=== PATIENT | female | born 1995 | race Caucasian/White ===

== ENCOUNTER 2018-07-23 08:04 | Emergency (ER) | payer OTHER ==
--- NOTE | 2018-07-23 08:29 | RAD ---
Indication: LEFT foot and ankle pain. Rolling injury. Comparison: Ankle of the same date. Technique: AP, lateral, and oblique views LEFT foot. Report: Negative for fracture or articular malalignment. Suggestion of degenerative change at the sesamoid at the lateral head of the flexor hallucis brevis. Unremarkable soft tissue contours. IMPRESSION: #. No acute traumatic injury evident.
--- NOTE | 2018-07-23 08:31 | RAD ---
Indication: LEFT ankle and foot pain following injury last night. Comparison: LEFT foot of the same date. Technique: AP, mortise, and lateral views LEFT ankle. Report: Negative for fracture or articular malalignment. Mild soft tissue swelling most prominent over the lateral malleolus. IMPRESSION: #. Mild lateral soft tissue swelling without additional finding.
--- NOTE | 2018-07-23 08:48 | ED ---
Lower Extremity - HPI Summary HPI Summary: Patient is a 23 y/o female who presents to the ED c/o left ankle pain. 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 Patient elevated her ankle last night while sleeping, but the pain did not resolve. She notes a 2/10 aching pain currently, but the pain goes to a 10/10 when ambulating. Patient can put pressure on her ankle, but it hurts. LKMP 2 weeks ago. - History of Current Complaint Chief Complaint: EDExtremityLower Stated Complaint: LT ANKLE INJURY Time Seen by Provider: 07/23/18 08:08 Hx Obtained From: Patient Hx Last Menstrual Period: 2 weeks ago Mechanism Of Injury: Twisted Onset of Pain: Immediate Onset/Duration: Still Present - Last night Severity Currently: Mild Pain Intensity: 2 Pain Scale Used: 0-10 Numeric Timing: Constant Location: Is Discrete @ - Left ankle Character Of Pain: Aching Associated Signs And Symptoms: Positive: Swelling Aggravating Factor(s): Standing, Ambulation, Weight Bearing Alleviating Factor(s): Nothing - Allergies/Home Medications Allergies/Adverse Reactions: Allergies Allergy/AdvReac Type Severity Reaction Status Date / Time No Known Allergies Allergy Verified 07/23/18 08:10 Home Medications: Home Medications NK [No Home Medications Reported] 07/23/18 [History Confirmed 07/23/18] PMH/Surg Hx/FS Hx/Imm Hx Endocrine/Hematology History: Denies: Hx Diabetes Cardiovascular History: Denies: Hx Hypertension - Surgical History Surgery Procedure, Year, and Place: None. Infectious Disease History: No Infectious Disease History: Denies: Traveled Outside the [place] in Last 30 Days - Family History Known Family History: Negative: Diabetes - Social History Alcohol Use: Occasionally Hx Substance Use: No Substance Use Type: Reports: None Hx Tobacco Use: No Smoking Status (MU): Never Smoked Tobacco Review of Systems Negative: Fever Positive: Arthralgia - Left ankle pain All Other Systems Reviewed And Are Negative: Yes Physical Exam - Summary Physical Exam Summary: VITAL SIGNS: Reviewed. GENERAL: Patient is a well-developed and nourished FEMALE who is lying comfortable in the stretcher. Patient is not in any acute respiratory distress. HEAD AND FACE: No signs of trauma. No ecchymosis, hematomas or skull depressions. No sinus tenderness. EYES: PERRLA, EOMI x 2, No injected conjunctiva, no nystagmus. EARS: Hearing grossly intact. Ear canals and tympanic membranes are within normal limits. MOUTH: Oropharynx within normal limits. NECK: Supple, trachea is midline, no adenopathy, no JVD, no carotid bruit, no c- spine tenderness, neck with full ROM. CHEST: Symmetric, no tenderness at palpation LUNGS: Clear to auscultation bilaterally. No wheezing or crackles. CVS: Regular rate and rhythm, S1 and S2 present, no murmurs or gallops appreciated. Good pulses and capillary refill. ABDOMEN: Soft, non-tender. No signs of distention. No rebound no guarding, and no masses palpated. Bowel sounds are normal. EXTREMITIES: Mild edema of left foot around the left lateral malleolus. Full ROM. Able to bear weight. NEURO: Alert and oriented x 3. No acute neurological deficits. Speech is normal and follows commands. SKIN: Dry and warm Triage Information Reviewed: Yes Vital Signs On Initial Exam: Initial Vitals Temp Pulse Resp BP Pulse Ox 97.7 F 90 16 130/73 99 07/23/18 08:05 07/23/18 08:05 07/23/18 08:05 07/23/18 08:05 07/23/18 08:05 Vital Signs Reviewed: Yes Diagnostics - Vital Signs Vital Signs Temp Pulse Resp BP Pulse Ox 07/23/18 08:05 97.7 F 90 16 130/73 99 - Laboratory Lab Statement: Any lab studies that have been ordered have been reviewed, and results considered in the medical decision making process. - Radiology Foot XR Xray Interpretation: No Acute Changes - No acute traumatic injury evident. ED physician reviewed radiology report. Radiology Interpretation Completed By: Radiologist Ankle XR Xray Interpretation: Positive (See Comments) - Mild lateral soft tissue swelling without additional finding. ED physician reviewed radiology report. Radiology Interpretation Completed By: Radiologist Re-Evaluation - Re-Evaluation First Eval Re-Evaluation Time: 09:38 Change: Unchanged Comment: Informed patient of results and discharge instructions. Lower Extremity Course/Dx - Course Assessment/Plan: Patient is a 23 y/o female who presents to the ED c/o left ankle pain. 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 Patient elevated her ankle last night while sleeping, but the pain did not resolve. She notes a 2/10 aching pain currently, but the pain goes to a 10/10 when ambulating. Patient can put pressure on her ankle, but it hurts. LKMP 2 weeks ago. X-ray of the foot impression: No acute traumatic injury evident. X-ray of the ankle impression: Mild lateral soft tissue swelling without additional findings. Since the patient does have any fracture dislocation and believe that the patient has a tendon injury. The patient was placed in a gel cast, she was asked to take ibuprofen abdominal for the pain and follow-up with primary care physician. If the pain increases or does not improve with ice, elevation, and pain medication she should return to the emergency room for further workup and management. The patient understands and agrees. - Diagnoses Differential Diagnosis/HQI/PQRI: Positive: Bursitis, Cellulitis, Sprain, Strain , Tendonitis Provider Diagnoses: Ankle sprain Discharge - Sign-Out/Discharge Documenting (check all that apply): Patient Departure - Discharge - Discharge Plan Condition: Stable Disposition: HOME Patient Education Materials: Ankle Sprain (ED) Referrals: [facility] [place] [facility] [Outside] - 3 Days Additional Instructions: RETURN TO THE ED FOR ANY WORSENING OR NEW SYMPTOMS. - Billing Disposition and Condition Condition: STABLE Disposition: Home - Attestation Statements Document Initiated by Manpreetibe: Yes Documenting Scribe: Nicole Gupta Provider For Whom Mustapha is Documenting (Include Credential): Mario Hooker MD Scribe Attestation: Nicole Storm scribed for Mario Hooker MD on 07/25/18 at 0859. Scribe Documentation Reviewed: Yes Provider Attestation: The documentation as recorded by the Nicole cho accurately reflects the service I personally performed and the decisions made by me, Mario Hooker MD
[2018-07-23 10:07] VITALS: BP 115/74
== END 2018-07-23 10:06 | disposition home or self-care (01) ==
LOC: ED 08:04
DX: S93.402A Sprain of unspecified ligament of left ankle, initial encounter (principal); M25.572 Pain in left ankle and joints of left foot; X50.0XXA Overexertion from strenuous movement or load, initial encounter; X50.9XXA Other and unspecified overexertion or strenuous movements or postures, initial encounter; Y92.9 Unspecified place or not applicable
CPT/HCPCS: 99282

== ENCOUNTER 2019-01-05 16:13 | Emergency (ER) | payer OTHER ==
[2019-01-05] MEDS ORDERED: Ondansetron ODT TAB* 4 MG PO ONE (17:14)
[2019-01-05] MEDS ORDERED: Famotidine TAB* 20 MG PO ONE (17:14)
[2019-01-05] MEDS ORDERED: NS 0.9% 1000 ML** 1,000 ML IV ONE (17:17)
[2019-01-05] MEDS ORDERED: Ondansetron INJ* 2 MG/ML VIAL IV ONE (17:17)
--- NOTE | 2019-01-05 17:25 | ED ---
Substance Abuse/Use - HPI Summary HPI Summary: Patient is a 23 y/o female who presents to the ED c/o N/V. She was brought here by her friends with concern for dehydration. Patient began drinking shots of clear liquor at 9:00 this morning. Friends state that patient began sleeping and vomiting around 14:30 today. She was not able to keep any fluids down. Patient denies any head injury or pain. She now c/o nausea. LNMP 1 day ago. 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 Hx Last Menstrual Period: 2 weeks ago ?: No Ingestion History: Type/Name Of Drug - alcohol, Approximate Time Of Ingestion - since 9:00 this morning Overdose Characteristics: Oral Aggravating Factor(s): Nothing Alleviating Factor(s): Nothing Associated Signs And Symptoms: Nausea, Vomiting, Other: - sleepy - Allergies/Home Medications Allergies/Adverse Reactions: Allergies Allergy/AdvReac Type Severity Reaction Status Date / Time No Known Allergies Allergy Verified 01/05/19 16:20 PMH/Surg Hx/FS Hx/Imm Hx Endocrine/Hematology History: Denies: Hx Diabetes Cardiovascular History: Denies: Hx Hypertension - Surgical History Surgery Procedure, Year, and Place: None. Infectious Disease History: No Infectious Disease History: Denies: Traveled Outside the [place] in Last 30 Days - Family History Known Family History: Negative: Diabetes - Social History Alcohol Use: Occasionally Hx Substance Use: No Substance Use Type: Reports: None Hx Tobacco Use: No Smoking Status (MU): Never Smoked Tobacco Review of Systems Positive: Fatigue - "sleeping", Other - dehydrated Positive: Vomiting, Nausea Negative: Other - head injury All Other Systems Reviewed And Are Negative: Yes Physical Exam - Summary Physical Exam Summary: Appearance: Well appearing, no pain distress Skin: warm, dry, reflects adequate perfusion Head/face: normal Eyes: EOMI, EFRAIN ENT: mucous membranes moist Neck: supple, non-tender Respiratory: CTA, breath sounds present Cardiovascular: RRR, pulses symmetrical Abdomen: non-tender, soft Bowel Sounds: present Musculoskeletal: normal, strength/ROM intact Neuro: normal, sensory motor intact, A&Ox3 Triage Information Reviewed: Yes Vital Signs On Initial Exam: Initial Vitals Temp Pulse Resp BP Pulse Ox 98.3 F 87 16 105/61 98 01/05/19 16:16 01/05/19 16:16 01/05/19 16:16 01/05/19 16:16 01/05/19 16:16 Vital Signs Reviewed: Yes Diagnostics - Vital Signs Vital Signs Temp Pulse Resp BP Pulse Ox 01/05/19 16:16 98.3 F 87 16 105/61 98 - Laboratory Lab Statement: Any lab studies that have been ordered have been reviewed, and results considered in the medical decision making process. Course/Dx - Course Course Of Treatment: Nurse's notes reviewed. The patient presents alert, oriented but complaining of nausea and GI upset after drinking alcohol throughout the day today. She has stable gait and demonstrates functional capacity. She was given IV hydration here as well as Zofran and Pepcid with relief. She'll be discharged on Zofran and Pepcid. She is instructed not to drive and to not drink to excess. - Diagnoses Differential Diagnosis/HQI/PQRI: Positive: Alcohol Abuse Provider Diagnoses: Alcohol ingestion, Nausea Discharge - Sign-Out/Discharge Documenting (check all that apply): Patient Departure - Discharge Patient Received Moderate/Deep Sedation with Procedure: No - Discharge Plan Condition: Improved Disposition: HOME Prescriptions: Famotidine TAB* [Pepcid 20 MG TAB*] 20 mg PO BID PRN #10 tab PRN Reason: heart burn Ondansetron ODT TAB* [Zofran 4 MG Odt TAB*] 4 mg PO Q8H PRN #4 tab.odt PRN Reason: Nausea Patient Education Materials: Alcohol Intoxication (ED) Referrals: [facility] [Provider Group] Additional Instructions: Gatorade G2. Medication prescribed for nausea and heartburn. Return if worse, new symptoms or other concerns. Do not drive. Do not drink to excess. Follow- up with [facility]. - Billing Disposition and Condition Condition: IMPROVED Disposition: Home - Attestation Statements Document Initiated by Scribe: Yes Documenting Scribe: Nicole Gupta Provider For Whom Scribe is Documenting (Include Credential): Brian Angel MD Scribe Attestation: Nicole Storm, scribed for Brian Angel MD on 01/05/19 at 1829. Scribe Documentation Reviewed: Yes Provider Attestation: The documentation as recorded by the scribe, Nicole Gupta accurately reflects the service I personally performed and the decisions made by me, Brian Angel MD Status of Scribe Document: Viewed
[2019-01-05 18:11] VITALS: BP 122/64
== END 2019-01-05 18:10 | disposition home or self-care (01) ==
LOC: ED 16:13
DX: F10.129 Alcohol abuse with intoxication, unspecified (principal); R11.2 Nausea with vomiting, unspecified; E86.0 Dehydration; R53.83 Other fatigue
CPT/HCPCS: 99284; A9270-GY; J2405